=== PATIENT | female | born 1955 | race African-American/Black ===

== ENCOUNTER 2021-12-14 12:59 | Inpatient (IN) ==
[2021-12-14 14:42] LABS: Basophils # 0.1 10*3/uL (0.0-0.2); Basophils % 0.5 % (0.0-0.8); Eosinophils # 0.2 10*3/uL (0.0-0.87); Eosinophils % 1.7 % (0.00-10.9); Hemoglobin 7.7 GM/DL (12.0-16.0); Immature Granulocytes % 0.5 %; Immature Granulocytes Absolute 0.05 #; Lymphocytes # 2.5 10*3/uL (1.4-4.0); Lymphocytes % 23.9 % (21.3-54.2); Mean Corpuscular HGB Conc 30.8 GM/DL (32-36); Mean Platelet Volume 8.9 FL (9.6-12.0); Neutrophils % 65.4 % (38.7-73.9); Platelet Count 265 T/CUMM (130-400); Red Blood Count 2.81 MC/CUMM (3.8-5.5); Red Cell Distribution Width 14.9 % (9.3-17.3); White Blood Count 10.4 T/CUMM (4-12)
[2021-12-14 14:57] LABS: Alanine Aminotransferase 13 U/L (13-56); Albumin 3.3 G/DL (3.4-5.0); Alkaline Phosphatase 118 U/L (45-117); Aspartate Amino Transferase 8 U/L (0-37); Bilirubin,Total < 0.39 MG/DL (0.20-1.00); Blood Urea Nitrogen 41 MG/DL (7-18); Calcium 9.8 MG/DL (8.5-10.1); Carbon Dioxide 24 MMOL/L (21-32); Estimated Glom Filtration Rate 24 ML/MIN; Glucose 93 MG/DL (74-106); Osmolality,Calculated 260.5 MOS/KG (273-304); Sodium 125 MMOL/L (136-145); Total Protein 6.9 G/DL (6.4-8.2)
[2021-12-14 15:06] LABS: Potassium 6.8 MMOL/L (3.5-5.1)
[2021-12-14 15:29] LABS: Eosinophils 2 % (0-10); Lymphocytes 21 % (20-55); Metamyelocytes 1 %; Segmented Neutrophils 70 % (50-85); Total Cells Counted 100
[2021-12-14 15:34] LABS: Polychromasia Slight
[2021-12-14] MEDS ORDERED: SODIUM CHLORIDE 0.9% 1,000 ML IV STA (15:36)
[2021-12-14 15:42] LABS: Hypochromia 2+; Platelet Estimate Normal
[2021-12-14] MEDS ORDERED: ALBUTEROL 2.5 MG/3 ML NEB RESP TX STA (16:15)
[2021-12-14] MEDS ORDERED: INSULIN REGULAR 100 UNIT/ML IV ONE (16:15)
[2021-12-14] MEDS ORDERED: SODIUM BICARBONATE 50 MEQ/50 ML VIAL IV STA (16:16)
[2021-12-14] MEDS ORDERED: CALCIUM GLUCONATE RIDER 1,000 MG/50 ML PREMIX IV ONE (16:16)
[2021-12-14] MEDS ORDERED: DEXTROSE 50% 25 GM/50 ML VIAL IV STA (16:16)
[2021-12-14] MEDS ORDERED: SODIUM POLYSTYRENE SULFATE 15 GM/60 ML BOTTLE PO STA (16:16)
[2021-12-14] MEDS ORDERED: DEXTROSE 50% 25 GM/50 ML SYRINGE IV ONE (16:26)
[2021-12-14] MEDS ORDERED: methylPREDNISolone SOD SUC 125 MG/2 ML VIAL IV STA (16:56)
[2021-12-14] MEDS ORDERED: ONDANSETRON 4 MG/2 ML VIAL IV PRN (17:25)
[2021-12-14] MEDS ORDERED: hydrALAZINE 20 MG/1 ML VIAL IV PRN (17:25)
[2021-12-14] MEDS ORDERED: DOCUSATE SODIUM 100 MG CAPSULE PO PRN (17:25)
[2021-12-14] MEDS ORDERED: GLUCAGON 1 MG VIAL IM PRN (17:25)
[2021-12-14] MEDS ORDERED: DEXTROSE 10% 250 ML BAG IV PRN (17:25)
[2021-12-14] MEDS ORDERED: ALBUTEROL 2.5 MG/3 ML NEB RESP TX PRN (17:39)
[2021-12-14] MEDS: SODIUM CHLORIDE 0.9% 1,000 ML IV SCH (18:12)
[2021-12-14 18:30] LABS: Bilirubin,Urine Negative (Negative); Blood, Urine Negative (Negative); Glucose,Urine (UA) Negative (Negative); Hyaline Casts,Urine 3 /LPF (0-3); Ketones,Urine Negative (Negative); Mucus,Urine Occasional /LPF (Occasional); Nitrite,Urine Negative (Negative); Protein,Urine Negative; RBC,Urine <1 /HPF (0-4); Squamous Epithelial Cell,Urine Occasional /HPF (0-10); Urine Appearance CLEAR (Clear); Urine Color Straw (Yellow); Urine Specific Gravity 1.006 (1.001-1.035); Urine Urobilinogen < 2.0 EU/DL (<2.0)
[2021-12-14] MEDS: ALBUTEROL/IPRATROPIUM 3 ML NEB RESP TX SCH (20:45)
[2021-12-14] MEDS ORDERED: ENOXAPARIN 30 MG/0.3 ML SYRINGE SUBCUT SCH (21:00)
[2021-12-14] MEDS: BUDESONIDE/FORMOTEROL 160-4.5 INHALER 6 GM INH SCH (22:31)
[2021-12-14] MEDS: guaiFENesin/DM ER 600-30 MG TABLET PO SCH (22:31)
[2021-12-14] MEDS ORDERED: SODIUM POLYSTYRENE SULFATE 15 GM/60 ML BOTTLE PO ONE (22:55)
[2021-12-14] MEDS ORDERED: ENOXAPARIN 100 MG/ML SYRINGE SUBCUT STA (22:57)
[2021-12-15] MEDS: ALBUTEROL/IPRATROPIUM 3 ML NEB RESP TX SCH ×4 (00:09→18:47)
[2021-12-15] MEDS: SODIUM CHLORIDE 0.9% 1,000 ML IV SCH ×3 (04:10→22:21)
[2021-12-15 05:48] LABS: Basophils % 0.1 % (0.0-0.8); Hemoglobin 7.9 GM/DL (12.0-16.0); Immature Granulocytes % 0.6 %; Immature Granulocytes Absolute 0.07 #; Lymphocytes # 0.9 10*3/uL (1.4-4.0); Lymphocytes % 8.2 % (21.3-54.2); Mean Corpuscular HGB Conc 31.6 GM/DL (32-36); Mean Corpuscular Volume 88.7 FL (87-102); Mean Platelet Volume 9.1 FL (9.6-12.0); Monocytes % 1.2 % (1.7-12.7); Neutrophils % 89.9 % (38.7-73.9); Platelet Count 269 T/CUMM (130-400); Red Blood Count 2.82 MC/CUMM (3.8-5.5); Red Cell Distribution Width 14.7 % (9.3-17.3); White Blood Count 11.4 T/CUMM (4-12)
[2021-12-15 05:49] LABS: Calcium 9.3 MG/DL (8.5-10.1); Osmolality,Calculated 270.7 MOS/KG (273-304); Potassium 5.8 MMOL/L (3.5-5.1)
[2021-12-15 05:51] LABS: VLDL Cholesterol 8.8 MG/DL
[2021-12-15] MEDS ORDERED: SODIUM ZIRCONIUM CYCLOSILICATE 10 GM PACK PO ONE (06:38)
[2021-12-15 07:17] LABS: Vitamin B12 324 PG/ML (211-911)
[2021-12-15 07:20] LABS: Sedimentation Rate-Westergren 106 MM/HR (0-30)
[2021-12-15] MEDS ORDERED: methylPREDNISolone SOD SUC 40 MG/1 ML VIAL IV SCH (08:00)
[2021-12-15] MEDS ORDERED: INSULIN REGULAR 10 UNIT, CALCIUM GLUCONATE 1,000 MG in DEXTROSE 10% 250 ML IV ONE (09:00)
[2021-12-15] MEDS: guaiFENesin/DM ER 600-30 MG TABLET PO SCH ×2 (09:23→21:05)
[2021-12-15] MEDS: ACETAMINOPHEN 325 MG TABLET PO PRN ×2 (09:23→21:05)
[2021-12-15] MEDS: PANTOPRAZOLE 40 MG TABLET PO SCH (09:24)
[2021-12-15] MEDS: BUDESONIDE/FORMOTEROL 160-4.5 INHALER 6 GM INH SCH ×2 (09:30→21:06)
[2021-12-15] MEDS ORDERED: predniSONE 20 MG TABLET PO SCH (11:30)
[2021-12-15] MEDS: predniSONE 20 MG TABLET PO SCH ×2 (11:56→21:05)
[2021-12-15] MEDS: carvediloL 12.5 MG TABLET PO SCH ×2 (11:56→17:31)
[2021-12-15] MEDS: SODIUM ZIRCONIUM CYCLOSILICATE 10 GM PACK PO SCH (17:31)
[2021-12-15] MEDS: FERRIC GLUCONATE COMPLEX 125 MG in SODIUM CHLORIDE 0.9% 100 ML IV SCH (18:06)
[2021-12-15] MEDS: ENOXAPARIN 40 MG/0.4 ML SYRINGE SUBCUT SCH (21:05)
[2021-12-16] MEDS: ALBUTEROL/IPRATROPIUM 3 ML NEB RESP TX SCH ×4 (00:06→18:54)
[2021-12-16] MEDS: SODIUM ZIRCONIUM CYCLOSILICATE 10 GM PACK PO SCH ×2 (00:35→10:18)
[2021-12-16 09:02] LABS: Calcium 9.4 MG/DL (8.5-10.1); Osmolality,Calculated 285.4 MOS/KG (273-304); Potassium 4.6 MMOL/L (3.5-5.1)
[2021-12-16 09:04] LABS: Basophils % 0.1 % (0.0-0.8); Hematocrit 26.5 VOL% (35.7-47.0); Hemoglobin 8.4 GM/DL (12.0-16.0); Immature Granulocytes Absolute 0.15 #; Lymphocytes # 1.7 10*3/uL (1.4-4.0); Lymphocytes % 11.1 % (21.3-54.2); Mean Corpuscular HGB Conc 31.7 GM/DL (32-36); Mean Platelet Volume 8.9 FL (9.6-12.0); Monocytes % 6.8 % (1.7-12.7); Platelet Count 293 T/CUMM (130-400); Red Blood Count 3.01 MC/CUMM (3.8-5.5); White Blood Count 15.1 T/CUMM (4-12)
[2021-12-16] MEDS: guaiFENesin/DM ER 600-30 MG TABLET PO SCH ×2 (10:18→21:35)
[2021-12-16] MEDS: PANTOPRAZOLE 40 MG TABLET PO SCH (10:18)
[2021-12-16] MEDS: carvediloL 12.5 MG TABLET PO SCH ×2 (10:18→16:42)
[2021-12-16] MEDS: SODIUM CHLORIDE 0.9% 1,000 ML IV SCH ×2 (10:19→19:41)
[2021-12-16] MEDS: predniSONE 20 MG TABLET PO SCH (10:19)
[2021-12-16] MEDS: BUDESONIDE/FORMOTEROL 160-4.5 INHALER 6 GM INH SCH ×2 (10:19→21:00)
[2021-12-16] MEDS: FERRIC GLUCONATE COMPLEX 125 MG in SODIUM CHLORIDE 0.9% 100 ML IV SCH (10:19)
[2021-12-16] MEDS: cefTRIAXone 1,000 MG in SODIUM CHLORIDE 0.9% 100 ML IV SCH (16:42)
[2021-12-16] MEDS ORDERED: ATORVASTATIN 20 MG TABLET PO SCH (21:00)
[2021-12-16] MEDS: ENOXAPARIN 40 MG/0.4 ML SYRINGE SUBCUT SCH (21:34)
[2021-12-16] MEDS: TOLTERODINE 2 MG TABLET PO SCH (21:35)
[2021-12-17] MEDS: ALBUTEROL/IPRATROPIUM 3 ML NEB RESP TX SCH ×3 (00:14→13:10)
[2021-12-17 06:00] LABS: Calcium 9.6 MG/DL (8.5-10.1); Osmolality,Calculated 278.5 MOS/KG (273-304); Potassium 3.9 MMOL/L (3.5-5.1)
[2021-12-17] MEDS ORDERED: ASPIRIN EC 81 MG TABLET PO SCH (09:00)
[2021-12-17] MEDS ORDERED: DOCUSATE SODIUM 100 MG CAPSULE PO SCH (09:00)
[2021-12-17] MEDS ORDERED: CLOPIDOGREL 75 MG TABLET PO SCH (09:00)
[2021-12-17] MEDS: PANTOPRAZOLE 40 MG TABLET PO SCH (09:23)
[2021-12-17] MEDS: carvediloL 12.5 MG TABLET PO SCH (09:23)
[2021-12-17] MEDS: TOLTERODINE 2 MG TABLET PO SCH (09:23)
[2021-12-17] MEDS: guaiFENesin/DM ER 600-30 MG TABLET PO SCH (09:24)
[2021-12-17] MEDS: BUDESONIDE/FORMOTEROL 160-4.5 INHALER 6 GM INH SCH (09:26)
[2021-12-17] MEDS: FERRIC GLUCONATE COMPLEX 125 MG in SODIUM CHLORIDE 0.9% 100 ML IV SCH (09:37)
[2021-12-17 10:20] LABS: Hemoglobin A1 (Alkaline) 98.4 % (96.5-98.5); Hemoglobin A2 (Alkaline) 1.6 % (1.5-3.5)
[2021-12-17 10:21] LABS: Basophils % 0.2 % (0.2-1.0); Eosinophils % 0.1 % (0.0-10.0); Hematocrit 24.9 VOL% (37.0-47.0); Lymphocytes # 3.4 # (1.3-2.9); Lymphocytes % 26.8 % (20.5-45.5); Mean Corpuscular HGB Conc 32.1 GM/DL (32-36); Mean Corpuscular Volume 87.7 FL (81-99); Mean Platelet Volume 9.5 FL (7.4-10.4); Monocytes % 10.5 % (5.5-11.7); Neutrophils % 61.7 % (43.0-65.0); Platelet Count 280 T/CUMM (130-400); Red Blood Count 2.84 MC/CUMM (4.20-5.40); Red Cell Distribution Width 15.4 % (11.5-15.5); White Blood Count 12.8 T/CUMM (4.8-10.8)
[2021-12-17] MEDS: cefTRIAXone 1,000 MG in SODIUM CHLORIDE 0.9% 100 ML IV SCH (11:15)
[2021-12-17 13:16] VITALS: BP 130/58
== END 2021-12-17 16:09 | DRG 191 ==
LOC: N.ED 12:59 → SUATTDRO 17:25 → N.EDINP 17:25 → N.TELEN 19:29
PROVIDERS: ADMIT Internal Medicine; ATTEND Internal Medicine

== ENCOUNTER 2022-12-02 16:26 | Observation (INO) ==
[2022-12-02] MEDS ORDERED: PANTOPRAZOLE 40 MG VIAL IV STA (16:49)
[2022-12-02 17:43] LABS: Basophils # 0.1 10*3/uL (0.0-0.2); Basophils % 0.5 % (0.0-0.8); Eosinophils # 0.2 10*3/uL (0.0-0.87); Eosinophils % 1.8 % (0.00-10.9); Hematocrit 27.2 VOL% (35.7-47.0); Hemoglobin 8.4 GM/DL (12.0-16.0); Immature Granulocytes % 0.5 %; Immature Granulocytes Absolute 0.06 #; Lymphocytes # 2.6 10*3/uL (1.4-4.0); Lymphocytes % 21.5 % (21.3-54.2); Mean Corpuscular HGB Conc 30.9 GM/DL (32-36); Mean Corpuscular Volume 84.2 FL (87-102); Mean Platelet Volume 9.1 FL (9.6-12.0); Monocytes # 1.2 10*3/uL (0.11-0.8); Monocytes % 10.4 % (1.7-12.7); Neutrophils % 65.3 % (38.7-73.9); Platelet Count 293 T/CUMM (130-400); Red Blood Count 3.23 MC/CUMM (3.8-5.5); Red Cell Distribution Width 15.7 % (9.3-17.3); White Blood Count 11.94 T/CUMM (4-12)
[2022-12-02 17:54] LABS: INR 0.9; PT Patient Result 9.8 SECS (10.1-12.1); Partial Thromboplastin Time 28.8 SECS (23.7-32.9)
[2022-12-02 18:03] LABS: Alanine Aminotransferase 16 U/L (13-56); Albumin 3.2 G/DL (3.4-5.0); Alkaline Phosphatase 138 U/L (45-117); Aspartate Amino Transferase 8 U/L (0-37); Bilirubin,Total < 0.39 MG/DL (0.20-1.00); Blood Urea Nitrogen 19 MG/DL (7-18); Calcium 9.9 MG/DL (8.5-10.1); Carbon Dioxide 27 MMOL/L (21-32); Chloride 104 MMOL/L (98-107); Glucose 147 MG/DL (74-106); Osmolality,Calculated 283.4 MOS/KG (273-304); Sodium 140 MMOL/L (136-145); Total Protein 7.5 G/DL (6.4-8.2)
[2022-12-02 18:10] LABS: Band Neutrophils 2 % (0-10); Eosinophils 4 % (0-10); Lymphocytes 21 % (20-55); Nucleated Red Blood Cells 1 /100 WBC (0-5); Platelet Estimate Normal; Total Cells Counted 100
[2022-12-02] MEDS ORDERED: ONDANSETRON 4 MG/2 ML VIAL IV PRN (18:12)
[2022-12-02] MEDS ORDERED: ACETAMINOPHEN 325 MG TABLET PO PRN (18:12)
[2022-12-02] MEDS ORDERED: traMADol 50 MG TABLET PO PRN (18:16)
[2022-12-02] MEDS ORDERED: BISACODYL 5 MG TABLET PO PRN (18:16)
[2022-12-02] MEDS ORDERED: ALUMINUM/MAGNES/SIMETH MAX STR 30 ML UDCUP PO PRN (18:16)
[2022-12-02] MEDS ORDERED: SODIUM CHLORIDE 0.65% NASAL SPRAY 45 ML BOTTLE BOTH NARES PRN (18:16)
[2022-12-02] MEDS ORDERED: DEXTROSE 10% 250 ML BAG IV PRN (19:31)
[2022-12-02] MEDS: INSULIN REGULAR 100 UNIT/ML SUBCUT SCH (20:34)
[2022-12-02] MEDS: ATORVASTATIN 20 MG TABLET PO SCH (20:48)
[2022-12-02] MEDS: GABAPENTIN 400 MG CAPSULE PO SCH (20:48)
[2022-12-02] MEDS: carvediloL 12.5 MG TABLET PO SCH (20:49)
[2022-12-02] MEDS: METHENAMINE HIPPURATE 1 GM TABLET PO SCH (20:49)
[2022-12-02] MEDS: MONTELUKAST 10 MG TABLET PO SCH (20:49)
[2022-12-02] MEDS: BACLOFEN 10 MG TABLET PO SCH (20:49)
[2022-12-02] MEDS: MULTIVITAMIN (INTRINSIC) CAPSULE PO SCH (20:56)
[2022-12-02] MEDS: BUDESONIDE/FORMOTEROL 160-4.5 INHALER 6 GM INH SCH (20:57)
[2022-12-02] MEDS: TOLTERODINE 2 MG PO SCH (20:58)
[2022-12-02 22:14] LABS: Hematocrit 25.7 VOL% (35.7-47.0); Hemoglobin 7.8 GM/DL (12.0-16.0)
[2022-12-03] MEDS: ALBUTEROL/IPRATROPIUM 3 ML NEB RESP TX SCH ×5 (01:27→19:10)
[2022-12-03] MEDS: BUDESONIDE 0.25 MG/2 ML NEB RESP TX SCH ×4 (01:27→19:10)
[2022-12-03 05:38] LABS: Hematocrit 25.6 VOL% (35.7-47.0); Hemoglobin 7.6 GM/DL (12.0-16.0)
[2022-12-03 06:00] LABS: Alanine Aminotransferase 14 U/L (13-56); Alkaline Phosphatase 122 U/L (45-117); Aspartate Amino Transferase 6 U/L (0-37); Bilirubin,Total < 0.39 MG/DL (0.20-1.00); Blood Urea Nitrogen 21 MG/DL (7-18); Calcium 9.7 MG/DL (8.5-10.1); Carbon Dioxide 29 MMOL/L (21-32); Chloride 105 MMOL/L (98-107); Glucose 174 MG/DL (74-106); Osmolality,Calculated 289.1 MOS/KG (273-304); Potassium 4.2 MMOL/L (3.5-5.1); Sodium 142 MMOL/L (136-145); Total Protein 6.7 G/DL (6.4-8.2)
[2022-12-03] MEDS: INSULIN REGULAR 100 UNIT/ML SUBCUT SCH ×4 (07:43→21:12)
[2022-12-03] MEDS: BUDESONIDE/FORMOTEROL 160-4.5 INHALER 6 GM INH SCH ×2 (08:17→21:08)
[2022-12-03] MEDS: BACLOFEN 10 MG TABLET PO SCH ×3 (08:17→21:07)
[2022-12-03] MEDS: MULTIVITAMIN (INTRINSIC) CAPSULE PO SCH ×2 (08:17→21:15)
[2022-12-03] MEDS: MULTIVITAMIN (CENTRUM) TABLET PO SCH (08:17)
[2022-12-03] MEDS: carvediloL 12.5 MG TABLET PO SCH ×2 (08:17→21:07)
[2022-12-03] MEDS: GABAPENTIN 400 MG CAPSULE PO SCH ×3 (08:17→21:07)
[2022-12-03] MEDS: METHENAMINE HIPPURATE 1 GM TABLET PO SCH ×2 (08:17→21:06)
[2022-12-03] MEDS: PANTOPRAZOLE 40 MG VIAL IV SCH ×2 (08:18→21:05)
[2022-12-03] MEDS ORDERED: PANTOPRAZOLE 40 MG TABLET PO SCH (09:00)
[2022-12-03] MEDS ORDERED: NON-FORMULARY MEDICATION (Olopatadine [Pataday Once Daily Relief] 0.2 % Drops) BOTH EYES SCH (09:00)
[2022-12-03] MEDS: TOLTERODINE 2 MG PO SCH ×2 (09:15→21:08)
[2022-12-03 10:12] LABS: Hematocrit 24.4 VOL% (35.7-47.0); Hemoglobin 7.4 GM/DL (12.0-16.0)
[2022-12-03] MEDS ORDERED: SODIUM CHLORIDE 0.9% 1,000 ML IV PRN (14:28)
[2022-12-03] MEDS ORDERED: FUROSEMIDE 40 MG TABLET PO SCH (16:00)
[2022-12-03 20:03] LABS: Hematocrit 27.2 VOL% (35.7-47.0); Hemoglobin 8.1 GM/DL (12.0-16.0)
[2022-12-03] MEDS: MONTELUKAST 10 MG TABLET PO SCH (21:06)
[2022-12-03] MEDS: ATORVASTATIN 20 MG TABLET PO SCH (21:07)
[2022-12-04] MEDS: BUDESONIDE 0.25 MG/2 ML NEB RESP TX SCH ×3 (00:59→12:25)
[2022-12-04] MEDS: ALBUTEROL/IPRATROPIUM 3 ML NEB RESP TX SCH ×3 (00:59→12:25)
[2022-12-04 04:07] LABS: Basophils # 0.1 10*3/uL (0.0-0.2); Basophils % 0.5 % (0.0-0.8); Eosinophils # 0.2 10*3/uL (0.0-0.87); Eosinophils % 1.5 % (0.00-10.9); Hematocrit 29.4 VOL% (35.7-47.0); Hemoglobin 8.8 GM/DL (12.0-16.0); Immature Granulocytes % 0.6 %; Immature Granulocytes Absolute 0.06 #; Lymphocytes # 1.7 10*3/uL (1.4-4.0); Lymphocytes % 16.6 % (21.3-54.2); Mean Corpuscular HGB Conc 29.9 GM/DL (32-36); Mean Platelet Volume 9.2 FL (9.6-12.0); Monocytes # 1.2 10*3/uL (0.11-0.8); Monocytes % 11.2 % (1.7-12.7); Neutrophils % 69.6 % (38.7-73.9); Platelet Count 270 T/CUMM (130-400); Red Blood Count 3.42 MC/CUMM (3.8-5.5); Red Cell Distribution Width 15.4 % (9.3-17.3); White Blood Count 10.34 T/CUMM (4-12)
[2022-12-04] MEDS: INSULIN REGULAR 100 UNIT/ML SUBCUT SCH ×2 (08:00→12:46)
[2022-12-04 08:05] VITALS: BP 166/63
[2022-12-04] MEDS: PANTOPRAZOLE 40 MG VIAL IV SCH (08:25)
[2022-12-04] MEDS: BUDESONIDE/FORMOTEROL 160-4.5 INHALER 6 GM INH SCH (09:00)
[2022-12-04] MEDS ORDERED: NON-FORMULARY MEDICATION (Olopatadine [Pataday Once Daily Relief] 0.2 % Drops) BOTH EYES SCH (09:00)
[2022-12-04] MEDS: TOLTERODINE 2 MG PO SCH (09:00)
[2022-12-04] MEDS ORDERED: POLYETHYLENE GLYCOL POWDER 17 GM PACK PO SCH (09:00)
[2022-12-04] MEDS: METHENAMINE HIPPURATE 1 GM TABLET PO SCH (12:07)
[2022-12-04] MEDS: BACLOFEN 10 MG TABLET PO SCH (12:07)
[2022-12-04] MEDS: MULTIVITAMIN (CENTRUM) TABLET PO SCH (12:07)
[2022-12-04] MEDS: carvediloL 12.5 MG TABLET PO SCH (12:08)
[2022-12-04] MEDS: GABAPENTIN 400 MG CAPSULE PO SCH (12:08)
[2022-12-04] MEDS: MULTIVITAMIN (INTRINSIC) CAPSULE PO SCH (12:08)
== END 2022-12-04 14:17 ==
LOC: N.ED 16:26 → N.EDINP 16:26 → N.2E 19:06
PROVIDERS: ADMIT Internal Medicine; ATTEND Internal Medicine